=== PATIENT | female | born 1995 | race Hispanic/Latino ===

== ENCOUNTER 2024-06-29 11:57 | Emergency (ER) | payer BC ==
[~2024-06-29] VITALS: Ht 154.9 cm; Wt 51.9 kg
[2024-06-29] MEDS ORDERED: ASPIRIN 81 MG CHEW TAB PO ONE (12:30)
[2024-06-29 13:48] VITALS: PULSE 78; RESP 18; TEMP 98.5; O2SAT 100
[2024-06-29] MEDS ORDERED: MUPIROCIN 2% OINT 22 GM TUBE TOP SCH (14:00)
[2024-06-29] MEDS ORDERED: FUROSEMIDE INJ 10 MG/ML 4 ML VIAL IV SCH (16:00)
[2024-06-29] MEDS ORDERED: CARVEDILOL 3.125 MG TAB PO SCH (17:00)
[2024-06-29] MEDS ORDERED: LOSARTAN POTASSIUM 25 MG TAB PO SCH (17:00)
[2024-06-29] MEDS ORDERED: ENOXAPARIN SOD INJ 40 MG/0.4 ML SYR SC SCH (17:00)
== END 2024-06-29 13:49 | disposition home or self-care (01) ==
LOC: FSED 12:07
DX: M54.2 Cervicalgia (principal); S16.1XXA Strain of muscle, fascia and tendon at neck level, initial encounter; V53.5XXA Driver of pick-up truck or van injured in collision with car, pick-up truck or van in traffic accident, initial encounter; Y92.488 Other paved roadways as the place of occurrence of the external cause
CPT/HCPCS: 72040; 99283